=== PATIENT | female | born 1965 | race Caucasian/White ===

== ENCOUNTER 2016-06-08 10:35 | Emergency (ER) | payer BC ==
[~2016-06-08] VITALS: Wt 79.0 kg
[~2016-06-08 10:35] MED LIST: ASPI-664 PO; IBUP-1542 PO; LISI10TA2 PO; METF500T4 PO; PARO-37 PO
[2016-06-08] MEDS ORDERED: SOD CHLORIDE 0.9% 1,000 ML IV STA (11:14)
[2016-06-08] MEDS ORDERED: METF-382 PO (11:18)
[2016-06-08] MEDS ORDERED: morphine 4 MG/ML VIAL IV STA (11:21)
[2016-06-08] MEDS ORDERED: ONDANSETRON 4 MG INJ IV STA (11:21)
[2016-06-08 11:45] LABS: ALBUMIN 4.4 g/dl (3.3-4.9)
[2016-06-08 11:48] LABS: ALBUMIN/GLOBULIN RATIO 1.07; CREATININE 0.54 mg/dl (0.44-1.00); TOTAL PROTEIN 8.5 g/dl (6.1-8.1)
[2016-06-08 11:49] LABS: CALCIUM 9.6 mg/dl (8.4-10.2)
[2016-06-08 11:51] LABS: BASOPHILS % 0.4 % (0.0-2.0); EOSINOPHILS # 0.2 10^3/ul (0.0-0.5); EOSINOPHILS % 2.9 % (0.0-7.0); HEMATOCRIT 39.7 % (37.0-47.0); HEMOGLOBIN 13.7 g/dl (12.0-16.0); LYMPHOCYTES % 27.1 % (15.0-51.0); MEAN CORPUSCULAR HEMOGLOBIN 28.8 pg (29.0-33.0); MEAN CORPUSCULAR HGB CONC 34.6 g/dl (32.0-37.0); MEAN CORPUSCULAR VOLUME 83.2 fl (82.0-101.0); MEAN PLATELET VOLUME 10.6 fl (7.4-10.4); MONOCYTE # 0.5 10^3/ul (0.3-0.9); NEUTROPHIL # 4.6 10^3/ul (1.6-7.5); NEUTROPHILS % 62.6 % (39.0-77.0); PLATELET COUNT 253 10^3/UL (140-440); RED BLOOD COUNT 4.77 10^6/ul (4.20-5.40); RED CELL DISTRIBUTION WIDTH 13.6 % (11.5-14.5); UNCORRECTED WBC 7.3 10^3/ul (4.8-10.8); WHITE BLOOD COUNT 7.3 10^3/ul (4.8-10.8)
[2016-06-08 11:58] LABS: CONDITION 1
[2016-06-08] MEDS ORDERED: DIPHENOXYLATE/ATROPINE TAB PO ONE (12:00)
[2016-06-08] MEDS ORDERED: SOD CHLORIDE 0.9% 100 ML ONE (12:24)
[2016-06-08] MEDS ORDERED: IODIXANOL LOCM 100 ML BTL ONE (12:24)
--- NOTE | 2016-06-08 13:17 | RADRPT ---
PROCEDURE: CT abdomen and pelvis with contrast. CLINICAL INDICATION: Abdominal pain. Diarrhea. TECHNIQUE: CT scan of the abdomen and pelvis with contrast was performed on a [facility] The patient was scanned following the uncomplicated intravenous administration 99 cc of Visipaq ue 320. Coronal and sagittal reformatted images were obtained from the axial source images. One or more of the following does reduction techniques were used: Automated exposure control; adjustment o f the mA and/or kV according to patient size; use of the aorta of reconstruction technique. Images w ere reviewed on a high-resolution PACS workstation. The total exam CTDI equals 11.16 mGy and the tot al exam DLP equals 618.87 mGy-cm. COMPARISON: Abdominal ultrasound 10/11/2015 FINDINGS: There are minimal atelectatic changes related to osteophytes arising from the right distal thoracic spine. The lungs are otherwise clear. The heart size is normal, without pericardial thickening or effusion. The liver, spleen, and pancreas are normal. The gallbladder is normal. The adrenal glands are symmetric and normal. The kidneys show normal and symmetric enhancement. No renal calculus or obstructive uropathy is seen. There is a 1 cm low right mid pole renal cyst. The aorta is of normal caliber. Minimal atherosclerotic calcifications are present. There is no ret roperitoneal lymph node enlargment. There is no evidence of large or small bowel obstruction. A normal appendix is identified. No free f luid or fluid collections are identified. No inflammatory changes are seen. The uterus is present. There is no evidence of pelvic sidewall lymph node enlargement. The bladder is within normal limits. There is no pelvic free fluid. The inguinal regions are unremarkable.. There are mild degenerative changes of the spine. The bones are otherwise intact. IMPRESSION: 1. No evidence of acute intra-abdominal or pelvic process. No evidence of mass, lymphadenopathy, o r urolithiasis. 2. Atherosclerotic vascular disease. RPTAT: KK .Hung Tomas MD, MD Date Time Electronically viewed and signed by .Hung Tomas MD, MD on 06/08/2016 13:17 .B/
--- NOTE | 2016-06-08 13:20 | ERD ---
ER Documentation Chief Complaint Date/Time DATE: 06/08/16 TIME: 13:10 Chief Complaint DIARRHEA/NAUSEA X 4 DAYS HPI This is a 50-year-old female that presents the emergency department with a known history of xop-iswwzoe-tjqpbweqz diabetes, hypertension and anxiety complaining of intermittent flank pain for the past 6 months. She indicates the flank pain is most prominent on the left side and has began to radiate to the left lower quadrant over the past 4 days she states that she has had multiple episodes of loose watery stools. She denies any recent travel or prolonged immobilization. She has had no recent hospitalizations. She has had no fever shaking or chills. She is no frequency urgency or dysuria. Her previous surgical interventions include sections. She denies any chest pain or pressure that radiates to the neck or back or jaw. She has had no weight loss. She denies any recent remote blunt or penetrating abdominal wall trauma. She also indicates that the flank pain that has been present for the past 6 months is more prominent on the left side, exacerbated by movement as a dull achy sensation. ROS All systems reviewed and are negative except as per history of present illness. Medications Home Meds Reported Medications Metformin Hcl* (Metformin Hcl*) 500 Mg Tablet, 250 MG PO WITH BREAKFAST, #30 TAB 06/08/16 Lisinopril* (Lisinopril*) 10 Mg Tablet, 10 MG PO DAILY, #30 TAB 11/11/15 Paroxetine Hcl* (Paroxetine*) 20 Mg Tablet, 20 MG PO DAILY, TAB 11/11/15 Aspirin* (Aspirin* EC) 81 Mg Tablet.dr, 81 MG PO DAILY, TAB 11/11/15 Discontinued Reported Medications Metformin* (Glucophage*) 500 Mg Tab, 500 MG PO WITH BREAKFAST, #30 TAB 11/11/15 Discontinued Scripts Ibuprofen* (Motrin*) 600 Mg Tab, 600 MG PO Q6H Y for PAIN AND OR ELEVATED TEMP, #30 TAB Prov:GUIDO STEVE MD 11/11/15 Allergies Allergies: Coded Allergies: No Known Allergy (Unverified , 06/08/16) PMhx/Soc History of Surgery: Yes ( X 2 ) Anesthesia Reaction: No Hx Neurological Disorder: No Hx Respiratory Disorders: No Hx Cardiac Disorders: Yes (htn) Hx Psychiatric Problems: Yes (DEPRESSION/Anxiety) Hx Miscellaneous Medical Probl: No Hx Alcohol Use: No Hx Substance Use: No Hx Tobacco Use: No Smoking Status: Never smoker Physical Exam Vitals Vital Signs Date Time Temp Pulse Resp B/P Pulse Ox O2 Delivery O2 Flow Rate FiO2 06/08/16 12:59 98.0 74 16 126/64 98 Room Air 06/08/16 10:39 98.0 79 18 122/62 98 Physical Exam Constitutional:Well-developed. Well-nourished. HEENT:Normocephalic. Atraumatic.Pupils were equal round reactive to light. Moist mucous membranes.No tonsillar exudates. Neck: No nuchal rigidity. No lymphadenopathy. No posterior cervical spine tenderness or step-offs. Respiratory: Not using accessory muscles of respiration.Lungs were clear to auscultation bilaterally. No rhonchi. No rales. No wheezing. Cardiovascular: Regular rate regular rhythm.No murmurs. No rubs were appreciated.S1, S2 normal. Distal pulses are palpable 2+ bilaterally. GI: Abdomen was soft. Nontender. Non Distended. No pulsatile abdominal masses or bruits. No rebound. No guarding. Bowel sounds were present and normal. Left CVA tenderness Muscle skeletal: Full range of motion of both the upper and lower extremities bilaterally.Normal muscle tone.No assymetrical calf tenderness or swelling. Skin: No petechia, no purpura. No lesions on the palms or the soles of the feet. No maculopapular rash. NEURO: Patient was alert, awake, orientated x3.No facial droop. Gait observed and normal with no ataxia.Speech had regular rate and rhythm. No focal neurological deficits. Result Diagram: 06/08/16 1115 06/08/16 1115 Results 24 hrs Laboratory Tests Test 06/08/16 11:15 Alanine Aminotransferase (ALT/SGPT) 38IU/L Albumin 4.4g/dl Albumin/Globulin Ratio 1.07 Alkaline Phosphatase 106IU/L Amylase Level 82U/L Anion Gap 16 Aspartate Amino Transf (AST/SGOT) 34IU/L Basophils # 0.010^3/ul Basophils % 0.4% Blood Morphology Comment Blood Urea Nitrogen 16mg/dl Calcium Level 9.6mg/dl Carbon Dioxide Level 30mmol/L Chloride Level 102mmol/L Creatinine 0.54mg/dl Direct Bilirubin 0.00mg/dl Eosinophils # 0.210^3/ul Eosinophils % 2.9% Globulin 4.10g/dl Glucose Level 100mg/dl Hematocrit 39.7% Hemoglobin 13.7g/dl Indirect Bilirubin 0.0mg/dl Lipase 103U/L Lymphocytes # 2.010^3/ul Lymphocytes % 27.1% Mean Corpuscular Hemoglobin 28.8pg Mean Corpuscular Hemoglobin Concent 34.6g/dl Mean Corpuscular Volume 83.2fl Mean Platelet Volume 10.6fl Monocytes # 0.510^3/ul Monocytes % 7.0% Neutrophils # 4.610^3/ul Neutrophils % 62.6% Nucleated Red Blood Cells # 0.010^3/ul Nucleated Red Blood Cells % 0.0/100WBC Platelet Count 90090^3/UL Potassium Level 4.0mmol/L Red Blood Count 4.7710^6/ul Red Cell Distribution Width 13.6% Sodium Level 144mmol/L Total Bilirubin 0.0mg/dl Total Protein 8.5g/dl Troponin I < 0.012ng/ml White Blood Count 7.310^3/ul Current Medications Medications (Trade) Dose Ordered Sig/Irene Route PRN Reason Start Time Stop Time Status Last Admin Dose Admin Sodium Chloride (NS) 1,000 ml @ 1,000 mls/hr Q1H STAT IV 06/08/16 11:14 06/08/16 12:13 DC 06/08/16 11:34 Morphine Sulfate (morphine) 4 mg ONCE STAT IV 06/08/16 11:21 06/08/16 11:28 DC 06/08/16 11:34 Ondansetron HCl (Zofran Inj) 4 mg ONCE STAT IV 06/08/16 11:21 06/08/16 11:28 DC 06/08/16 11:34 Diphenoxylate HCl/ Atropine (Lomotil) 1 tab ONCE ONCE PO 06/08/16 12:00 06/08/16 12:01 DC 06/08/16 12:17 IV Flush 10 ml 10 ml STK-MED ONCE .ROUTE 06/08/16 12:24 06/08/16 12:25 DC Sodium Chloride (NS) 100 ml @ ud STK-MED ONCE .ROUTE 06/08/16 12:24 06/08/16 12:25 DC Iodixanol (Visipaque Locm) 100 ml STK-MED ONCE .ROUTE 06/08/16 12:24 06/08/16 12:25 DC Procedures/MDM The patient presented to the emergency department with flank pain and diarrhea. My differential diagnosis included but was not limited to spinal origins of the pain such as fracture, osteomyelitis, epidural abscess, neoplasm, spondylolishtesis, discogenic, cauda equina syndrome or musculoligamentous. Nonspinal causes such as AAA, upper UTI, renal colic, aortic dissection, abdominal neoplasm were also considered as an etiology into their pain. I obtained a 12-lead EKG tracing to rule out atypical myocardial infarction. 12 Lead EKG tracing ordered and reviewed by myself showed: Normal sinus rhythm of 65 bpm and no arrhythmia. NM interval normal. QRS duration normal. No ST segment elevation No ST segment depression. No changes consistent with acute ischemia. The CT scan ordered and reviewed by myself as well as the radiologist indicated the followin. No evidence of acute intra-abdominal or pelvic process. No evidence of mass , lymphadenopathy, or urolithiasis. 2. Atherosclerotic vascular disease. There is no electrolyte abnormalities. The patient received a liter bolus of 0.9 normal saline Lomotil as an antidiarrheal my clinical suspicion was low for an infectious process such as Clostridium difficile. I indicated this is likely result of a viral etiology. The patient states she felt comfortable being discharged home. I did indicate she would benefit from an outpatient colonoscopy for further evaluation into the flank and abdominal pain. The patient was discharged home in fair condition. They were instructed to return to the emergency department at any time if there was any worsening of their condition. The patient stated they would follow up with their PCP in the next 24 -48 hours to initiate a suitable medication regimen under the care of their PCP as well as to allow their PCP to monitor any drug reactions. The patient was discharged home with prescriptions after they gave informed consent to the new medication. They were also fully informed by myself on the adverse effects and adverse drug interactions in order to provide adequate safeguards to prevent possible adverse reactions to medications. Departure Diagnosis: Primary Impression: Diarrhea with dehydration Additional Impression: Left flank pain, chronic Condition: Fair JASON LOPEZ Jun 08, 2016 13:19
[2016-06-08] MEDS ORDERED: UDLOM GTB (13:49)
[2016-06-08] MEDS ORDERED: NAPR-260 PO (13:49)
[2016-06-08 14:00] LABS: ADD UMIC NO; URINE BILIRUBIN (Dip) NEGATIVE (NEGATIVE); URINE BLOOD (Dip) NEGATIVE (NEGATIVE); URINE COLOR LT. YELLOW (YELLOW); URINE GLUCOSE (Dip) NEGATIVE (NEGATIVE); URINE KETONES (Dip) NEGATIVE (NEGATIVE); URINE LEUKOCYTE ESTERASE (Dip) NEGATIVE (NEGATIVE); URINE NITRITE (Dip) NEGATIVE (NEGATIVE); URINE TOTAL PROTEIN (Dip) NEGATIVE (NEGATIVE); URINE UROBILINOGEN (Dip) 0.2 E.U./dL (0.1-1.0)
[2016-06-08 14:24] VITALS: BP 124/66; PULSE 72; RESP 18; TEMP 98
== END 2016-06-08 14:24 | disposition home or self-care (01) ==
LOC: E/R 10:35
DX: R19.7 Diarrhea, unspecified (principal); E86.0 Dehydration; E11.9 Type 2 diabetes mellitus without complications; I10 Essential (primary) hypertension; Z79.82 Long term (current) use of aspirin; Z79.84 Long term (current) use of oral hypoglycemic drugs
CPT/HCPCS: 74177; 80053; 81003; 82150; 83690; 84484; 85025; 96361; 96374; 96375; J2270; J2405; J7030; Q9967; Z7502; Z7610; 93005